=== PATIENT | male | born 1950 | race Caucasian/White ===

== ENCOUNTER 2023-05-11 07:36 | Day surgery (SDC) | payer MEDICARE ==
[~2023-05-11] VITALS: Ht 185.4 cm; Wt 127.0 kg
[~2023-05-11 07:36] MED LIST: ALLOPURINOL300 MG PO; LISINOP/HCTZ1 TA2 PO; ROSUVASTATIN CA10 MG PO
[2023-05-11 10:46] VITALS: BP 141/93
== END 2023-05-11 11:00 | disposition home or self-care (01) ==
LOC: ENDO 07:36 → ORM 08:35 → ENDO 11:00 → ORM 12:30
PROVIDERS: ATTEND Surgery
PROC: 0DBH8ZX Excision of Cecum, Via Natural or Artificial Opening Endoscopic, Diagnostic (ICD-10-PCS; principal; 2023-05-11)
PROC: 0DBL8ZX Excision of Transverse Colon, Via Natural or Artificial Opening Endoscopic, Diagnostic (ICD-10-PCS; 2023-05-11)
DX: Z12.11 Encounter for screening for malignant neoplasm of colon (principal); D12.0 Benign neoplasm of cecum; D12.3 Benign neoplasm of transverse colon; K57.30 Diverticulosis of large intestine without perforation or abscess without bleeding; K64.4 Residual hemorrhoidal skin tags; K64.8 Other hemorrhoids; I10 Essential (primary) hypertension; Z86.010 Personal history of colon polyps